=== PATIENT | male | born 1970 | race Caucasian/White ===

== ENCOUNTER 2018-04-21 01:01 | Emergency (ER) | payer OTHER ==
[~2018-04-21] VITALS: Ht 177.8 cm; Wt 104.3 kg
[~2018-04-21 01:01] MED LIST: ALBU90OI INH; BENZ100A PO; Flovent Diskus50 MCG INH; GUAI120S1 PO; Prednisone20 MG PO; Ventolin Soln3 ML INH; Zithromax250 MG PO
== END 2018-04-21 06:48 | disposition home or self-care (01) ==
LOC: ER 01:01
DX: S09.90XA Unspecified injury of head, initial encounter (principal); S01.01XA Laceration without foreign body of scalp, initial encounter; F17.210 Nicotine dependence, cigarettes, uncomplicated; Z88.5 Allergy status to narcotic agent; Y04.2XXA Assault by strike against or bumped into by another person, initial encounter
CPT/HCPCS: 12005; 70450; 73562-LT; 90471; 90714; 96372; 99284-25; J1885

== ENCOUNTER → 2018-10-02 | Outpatient (CLI) | payer OTHER ==
[2018-10-02 18:20] LABS: BASOPHILS PERCENT AUTO 1 % (0-2); EOSINOPHILS ABSOLUTE AUTO 0.43 K/mm3 (0.00-0.68); EOSINOPHILS PERCENT AUTO 4 % (0-6); Hematocrit 47.9 % (37.0-53.0); Hemoglobin 15.9 g/dL (13.5-17.5); IMMATURE GRAN ABSOLUTE AUTO 0.05 K/mm3 (0.00-0.10); IMMATURE GRAN PERCENT AUTO 0 % (0-1); LYMPHOCYTES ABSOLUTE AUTO 2.62 K/mm3 (0.84-5.20); LYMPHOCYTES PERCENT AUTO 23 % (21-46); MONOCYTES ABSOLUTE AUTO 1.03 K/mm3 (0.16-1.47); MONOCYTES PERCENT AUTO 9 % (4-13); Mean Corpuscular HGB 31.3 pg (26.0-34.0); Mean Corpuscular HGB Conc 33.2 g/dL (31.5-36.5); Mean Corpuscular Volume 94 fL (80-100); Mean Platelet Volume 10.2 fL (9.1-12.4); NEUTROPHILS ABSOLUTE AUTO 7.17 K/mm3 (1.96-9.15); NEUTROPHILS PERCENT AUTO 63 % (41-73); Platelet Count 254 K/mm3 (150-400); RDW Coefficient Variation 12.7 % (11.7-14.2); RDW Standard Deviation 44.3 fL (35.1-46.3); Red Blood Cell Count 5.08 M/mm3 (4.30-5.90)
[2018-10-02 19:17] LABS: Alanine Aminotransfer (ALT/SGP 47 U/L (12-78); Albumin, Blood 3.8 g/dL (3.4-5.0); Albumin/Globulin Ratio 1.3 (0.8-1.8); Alk Phos 99 U/L (50-136); Anion Gap 8 mmol/L (6-16); Aspartate Aminotrans (AST/SGOT 21 U/L (12-37); Bilirubin, Total 0.3 mg/dL (0.1-1.0); Blood Urea Nitrogen 10 mg/dL (8-24); CHOL/HDL RATIO 6.5; CO2, Blood 23 mmol/L (21-32); Calcium, Blood 8.4 mg/dL (8.5-10.1); Chloride, Blood 106 mmol/L (98-108); Cholesterol 272 mg/dL (50-200); Creatinine, Blood 0.83 mg/dL (0.60-1.20); Free Thyroxine 0.95 ng/dL (0.70-1.60); Glomerular Filtration Rate >60 (60-); Glucose, Blood 101 mg/dL (70-99); HDL Cholesterol 42 mg/dL (>39); LDL/HDL RATIO 4.8; Low Density Lipoprotein Chol 202 mg/dL (0-110); Potassium, Blood 4.3 mmol/L (3.5-5.5); Sodium, Blood 137 mmol/L (136-145); Total Protein, Blood 6.8 g/dL (6.4-8.2); Triglycerides 139 mg/dL (30-160); Very Low Density Lipoprot Chol 27 mg/dL (6-32)
[2018-10-03 12:06] LABS: LDL Direct Measurement 147 mg/dL (0-130)
== END | disposition home or self-care (01) ==
LOC: LAB 10:50 → LAB SHORT 10:50
PROVIDERS: Nurse Practitioner Family
DX: I10 Essential (primary) hypertension (principal)
CPT/HCPCS: 80053; 80061; 83721; 84439; 84443; 85025

== ENCOUNTER → 2021-10-07 | Outpatient (CLI) | payer OTHER ==
[2021-10-07 20:06] LABS: Alanine Aminotransfer (ALT/SGP 24 U/L (12-78); Albumin/Globulin Ratio 1.1 (0.8-1.8); Alk Phos 112 U/L (50-136); Anion Gap 7 mmol/L (6-16); Aspartate Aminotrans (AST/SGOT 16 U/L (12-37); Bilirubin, Total 0.4 mg/dL (0.1-1.0); Blood Urea Nitrogen 13 mg/dL (8-24); Bun/Creatinine Ratio 13.3 (12.0-20.0); CHOL/HDL RATIO 4.4; CO2, Blood 26 mmol/L (21-32); Calcium, Blood 8.9 mg/dL (8.5-10.1); Chloride, Blood 107 mmol/L (98-108); Cholesterol 208 mg/dL (50-200); Creatinine, Blood 0.98 mg/dL (0.60-1.20); Globulin, Blood 3.7 g/dL (2.2-4.0); Glomerular Filtration Rate 95 (60-); Glucose, Blood 102 mg/dL (70-99); HDL Cholesterol 47 mg/dL (>39); LDL/HDL RATIO 2.5; Low Density Lipoprotein Chol 118 mg/dL (0-110); Potassium, Blood 4.2 mmol/L (3.5-5.5); Sodium, Blood 140 mmol/L (136-145); Total Protein, Blood 7.7 g/dL (6.4-8.2); Triglycerides 213 mg/dL (30-160); Very Low Density Lipoprot Chol 42 mg/dL (6-32)
== END | disposition home or self-care (01) ==
LOC: LAB SHORT 10:30 → LAB 10:30
PROVIDERS: Nurse Practitioner Family
DX: I10 Essential (primary) hypertension (principal)
CPT/HCPCS: 80053; 80061; 83036; 84443

== ENCOUNTER → 2022-09-05 | Outpatient (CLI) | payer OTHER ==
[2022-09-05 18:58] LABS: BASOPHILS ABSOLUTE AUTO 0.07 K/mm3 (0.00-0.23); BASOPHILS PERCENT AUTO 1 % (0-2); EOSINOPHILS ABSOLUTE AUTO 0.17 K/mm3 (0.00-0.68); EOSINOPHILS PERCENT AUTO 2 % (0-6); Hematocrit 49.7 % (37.0-53.0); Hemoglobin 16.7 g/dL (13.5-17.5); IMMATURE GRAN ABSOLUTE AUTO 0.03 K/mm3 (0.00-0.10); IMMATURE GRAN PERCENT AUTO 0 % (0-1); LYMPHOCYTES ABSOLUTE AUTO 2.51 K/mm3 (0.84-5.20); LYMPHOCYTES PERCENT AUTO 30 % (21-46); MONOCYTES ABSOLUTE AUTO 0.81 K/mm3 (0.16-1.47); MONOCYTES PERCENT AUTO 10 % (4-13); Mean Corpuscular HGB 30.8 pg (26.0-34.0); Mean Corpuscular HGB Conc 33.6 g/dL (31.5-36.5); Mean Corpuscular Volume 92 fL (80-100); Mean Platelet Volume 10.6 fL (9.1-12.4); NEUTROPHILS PERCENT AUTO 58 % (41-73); Platelet Count 249 K/mm3 (150-400); RDW Coefficient Variation 12.7 % (11.7-14.2); RDW Standard Deviation 42.9 fL (35.1-46.3); Red Blood Cell Count 5.42 M/mm3 (4.30-5.90); White Blood Cell Count 8.49 K/mm3 (4.00-11.30)
[2022-09-05 20:11] LABS: C-REACTIVE PROTEIN, EXT RANGE <0.290 mg/dL (0.000-0.300); LDL/HDL RATIO 3.5
[2022-09-05 20:12] LABS: Alanine Aminotransfer (ALT/SGP 42 U/L (12-78); Albumin, Blood 3.8 g/dL (3.4-5.0); Albumin/Globulin Ratio 1.1 (0.8-1.8); Alk Phos 93 U/L (50-136); Anion Gap 6 mmol/L (6-16); Aspartate Aminotrans (AST/SGOT 16 U/L (12-37); Bilirubin, Total 0.4 mg/dL (0.1-1.0); Blood Urea Nitrogen 15 mg/dL (8-24); Bun/Creatinine Ratio 15.5 (12.0-20.0); CHOL/HDL RATIO 4.9; CO2, Blood 26 mmol/L (21-32); Calcium, Blood 8.4 mg/dL (8.5-10.1); Chloride, Blood 108 mmol/L (98-108); Cholesterol 229 mg/dL (50-200); Creatinine, Blood 0.97 mg/dL (0.60-1.20); Globulin, Blood 3.5 g/dL (2.2-4.0); Glomerular Filtration Rate 95 (60-); Glucose, Blood 115 mg/dL (70-99); HDL Cholesterol 47 mg/dL (>39); Low Density Lipoprotein Chol 162 mg/dL (0-110); Potassium, Blood 3.8 mmol/L (3.5-5.5); Sodium, Blood 140 mmol/L (136-145); Total Protein, Blood 7.3 g/dL (6.4-8.2); Triglycerides 98 mg/dL (30-160); Very Low Density Lipoprot Chol 19 mg/dL (6-32)
[2022-09-06 19:06] LABS: ANA DIRECT Negative (Negative); ANTI-DNA (DS) AB QN 1 IU/mL (0-9); RNP ANTIBODIES <0.2 AI (0.0-0.9); SJOGREN'S ANTI-SS-A <0.2 AI (0.0-0.9); SJOGREN'S ANTI-SS-B <0.2 AI (0.0-0.9); SMITH ANTIBODIES <0.2 AI (0.0-0.9)
[2022-09-07 17:09] LABS: FREE TESTOSTERONE(DIRECT) 8.2 pg/mL (7.2-24.0); TESTOSTERONE, SERUM 321 ng/dL (264-916)
== END | disposition home or self-care (01) ==
LOC: LAB SHORT 16:16 → LAB 16:16
PROVIDERS: Nurse Practitioner Family
DX: Z12.5 Encounter for screening for malignant neoplasm of prostate (principal); I10 Essential (primary) hypertension; E55.9 Vitamin D deficiency, unspecified; E78.2 Mixed hyperlipidemia; M89.8X9 Other specified disorders of bone, unspecified site; R53.81 Other malaise; R53.83 Other fatigue
CPT/HCPCS: 80053; 80061; 82306; 82607; 82746; 84402; 84403; 84443; 85025; 85651; 86140; 86225; 86235; 86430; G0103

== ENCOUNTER 2023-01-10 21:03 | Observation (INO) | payer OTHER ==
[~2023-01-10] VITALS: Ht 172.7 cm; Wt 101.2 kg
[2023-01-10] MEDS ORDERED: LOSA50 PO (21:09)
[2023-01-10] MEDS ORDERED: PROPRANOLOL HC160 MG PO (21:09)
[2023-01-10 21:33] LABS: BASOPHILS ABSOLUTE AUTO 0.09 K/mm3 (0.00-0.23); BASOPHILS PERCENT AUTO 1 % (0-2); EOSINOPHILS ABSOLUTE AUTO 0.25 K/mm3 (0.00-0.68); EOSINOPHILS PERCENT AUTO 3 % (0-6); Hematocrit 45.7 % (37.0-53.0); Hemoglobin 15.7 g/dL (13.5-17.5); IMMATURE GRAN ABSOLUTE AUTO 0.02 K/mm3 (0.00-0.10); IMMATURE GRAN PERCENT AUTO 0 % (0-1); LYMPHOCYTES PERCENT AUTO 39 % (21-46); MONOCYTES ABSOLUTE AUTO 0.84 K/mm3 (0.16-1.47); MONOCYTES PERCENT AUTO 10 % (4-13); Mean Corpuscular HGB 30.8 pg (26.0-34.0); Mean Corpuscular HGB Conc 34.4 g/dL (31.5-36.5); Mean Corpuscular Volume 90 fL (80-100); Mean Platelet Volume 9.7 fL (9.1-12.4); NEUTROPHILS ABSOLUTE AUTO 3.91 K/mm3 (1.96-9.15); NEUTROPHILS PERCENT AUTO 47 % (41-73); Platelet Count 235 K/mm3 (150-400); RDW Coefficient Variation 11.8 % (11.7-14.2); RDW Standard Deviation 38.3 fL (35.1-46.3); White Blood Cell Count 8.31 K/mm3 (4.00-11.30)
[2023-01-10 22:13] LABS: Albumin, Blood 3.7 g/dL (3.4-5.0); Albumin/Globulin Ratio 0.9 (0.8-1.8); Bilirubin, Total 0.2 mg/dL (0.1-1.0); Bun/Creatinine Ratio 12.4 (12.0-20.0); Calcium, Blood 8.3 mg/dL (8.5-10.1); Creatinine, Blood 1.13 mg/dL (0.60-1.20); Globulin, Blood 3.9 g/dL (2.2-4.0); Potassium, Blood 3.7 mmol/L (3.5-5.5); Total Protein, Blood 7.6 g/dL (6.4-8.2)
[2023-01-10 23:12] LABS: Magnesium, Blood 2.4 mg/dL (1.6-2.4)
[2023-01-10 23:22] LABS: Thyroid Stimulating Hormone 1.92 uIU/mL (0.360-4.800)
[2023-01-11 00:45] LABS: Influenza A, PCR NEGATIVE (NEGATIVE); Influenza B, PCR NEGATIVE (NEGATIVE); Resp Syncytial Virus, PCR NEGATIVE (NEGATIVE); SARS-Cov-2 (COVID-19) PCR, MMC NEGATIVE (NEGATIVE)
[2023-01-11] MEDS ORDERED: HYDCHL25 PO (01:36)
[2023-01-11 06:51] VITALS: BP 184/111
[2023-01-11 09:36] VITALS: BP 136/87
[2023-01-11 11:31] VITALS: BP 142/88
--- NOTE | 2023-01-11 13:53 | NUR ---
DISCHARGE NOTE: DISCHARGE PAPERWORK DISUSSED WITH PATIENT. PT GOT HIMSELF DRESSED, I ASSISTED HIM COLLECTING HIS BELONGINGS, AND REMOVED HIS IV. I TRANSFERRED TO HIS 'S VEHICLE VIA WHEELCHAIR TO THE ADMITTING ENTRANCE WITHOUT SIGNS OR SYMPTOMS OF DISTRESS.
== END 2023-01-11 13:00 | disposition home or self-care (01) ==
LOC: ER 21:03 → MEDS 21:04 → ICUE 21:04 → MEDS 01-11 06:39
PROVIDERS: Emergency Medicine; ADMIT Internal Medicine
DX: R07.89 Other chest pain (principal); I16.9 Hypertensive crisis, unspecified; E55.9 Vitamin D deficiency, unspecified; Z87.891 Personal history of nicotine dependence
CPT/HCPCS: 0241U; 36415; 71045; 80053; 83036; 83690; 83735; 83970; 84100; 84443; 84484; 85025; 85379; 93005; 93010; 96372; 96374; 96375; 96376; 99285-25; A9270; G0378; J0360; J1650; J1885; J7050

== ENCOUNTER → 2024-07-01 | Outpatient (CLI) | payer OTHER ==
[~2024-07-01] MED LIST changes: +HYDCHL25 PO; +LOSA50 PO; +PROPRANOLOL HC160 MG PO
[2024-07-02 10:35] LABS: Alanine Aminotransfer (ALT/SGP 78 U/L (12-78); Albumin, Blood 3.7 g/dL (3.4-5.0); Alk Phos 82 U/L (50-136); Anion Gap 9 mmol/L (3-11); Aspartate Aminotrans (AST/SGOT 41 U/L (12-37); Bilirubin, Total 0.4 mg/dL (0.1-1.0); Blood Urea Nitrogen 14 mg/dL (8-24); Bun/Creatinine Ratio 13.2 (12.0-20.0); CHOL/HDL RATIO 5.9; CO2, Blood 27 mmol/L (21-32); Calcium, Blood 7.9 mg/dL (8.5-10.1); Chloride, Blood 104 mmol/L (98-108); Cholesterol 226 mg/dL (50-200); Creatinine, Blood 1.06 mg/dL (0.60-1.20); Globulin, Blood 3.6 g/dL (2.2-4.0); Glomerular Filtration Rate 84 (60-); Glucose, Blood 102 mg/dL (70-99); HDL Cholesterol 38 mg/dL (>39); Low Density Lipoprotein Chol 151 mg/dL (0-110); Potassium, Blood 4.2 mmol/L (3.5-5.5); Sodium, Blood 136 mmol/L (136-145); Total Protein, Blood 7.3 g/dL (6.4-8.2); Triglycerides 185 mg/dL (30-160); Very Low Density Lipoprot Chol 37 mg/dL (6-32)
[2024-07-02 10:41] LABS: BASOPHILS ABSOLUTE AUTO 0.09 K/mm3 (0.00-0.23); BASOPHILS PERCENT AUTO 1 % (0-2); EOSINOPHILS ABSOLUTE AUTO 0.29 K/mm3 (0.00-0.68); EOSINOPHILS PERCENT AUTO 4 % (0-6); Hematocrit 44.9 % (37.0-53.0); Hemoglobin 15.6 g/dL (13.5-17.5); IMMATURE GRAN ABSOLUTE AUTO 0.05 K/mm3 (0.00-0.10); IMMATURE GRAN PERCENT AUTO 1 % (0-1); LYMPHOCYTES ABSOLUTE AUTO 1.83 K/mm3 (0.84-5.20); LYMPHOCYTES PERCENT AUTO 26 % (21-46); MONOCYTES ABSOLUTE AUTO 0.85 K/mm3 (0.16-1.47); MONOCYTES PERCENT AUTO 12 % (4-13); Mean Corpuscular HGB 31.9 pg (26.0-34.0); Mean Corpuscular HGB Conc 34.7 g/dL (31.5-36.5); Mean Corpuscular Volume 92 fL (80-100); NEUTROPHILS ABSOLUTE AUTO 3.99 K/mm3 (1.96-9.15); NEUTROPHILS PERCENT AUTO 56 % (41-73); RDW Coefficient Variation 12.6 % (11.7-14.2); RDW Standard Deviation 42.6 fL (35.1-46.3); Red Blood Cell Count 4.89 M/mm3 (4.30-5.90)
[2024-07-02 11:07] LABS: Platelet Count 249 K/mm3 (150-400)
== END ==
LOC: LAB 09:21 → LAB SHORT 09:21
PROVIDERS: Nurse Practitioner Family
DX: I10 Essential (primary) hypertension (principal); E78.2 Mixed hyperlipidemia
CPT/HCPCS: 80053; 80061; 85025